=== PATIENT | female | born 1985 | race Caucasian/White ===

== ENCOUNTER 2017-08-19 21:49 | Emergency (ER) | payer BC ==
--- NOTE | 2017-08-19 23:08 | EDM.PDOC ---
ED HPI GENERAL MEDICAL PROBLEM - General Chief Complaint: Lower Extremity Injury/Pain Stated Complaint: RT FOOT HURTS Time Seen by Provider: 08/19/17 22:10 Source of Information: Reports: Patient - History of Present Illness INITIAL COMMENTS - FREE TEXT/NARRATIVE: three days ago she hit her right anterior leg below the knee against a trailer. Now she has pain.She was standing at work all day. she is worried about DVT and compartment syndrome Right Lower Leg Pain Score (Numeric/FACES): 7 - Related Data Allergies Allergy/AdvReac Type Severity Reaction Status Date / Time No Known Allergies Allergy Verified 08/19/17 21:58 Home Meds: Home Meds . [No Known Home Meds] 08/19/17 [History] Past Medical History HEENT History: Reports: None Cardiovascular History: Reports: None Musculoskeletal History: Reports: Other (See Below) Other Musculoskeletal History: right ribs fracture Psychiatric History: Reports: None Endocrine/Metabolic History: Denies: Diabetes, Type I, Diabetes, Type II - Infectious Disease History Infectious Disease History: Reports: Chicken Pox, Influenza - Past Surgical History HEENT Surgical History: Reports: None Cardiovascular Surgical History: Reports: None Respiratory Surgical History: Reports: Thoracotomy Musculoskeletal Surgical History: Reports: Other (See Below) Other Musculoskeletal Surgeries/Procedures:: clavicle surgery,right Social & Family History - Tobacco Use Smoking Status *Q: Current Every Day Smoker Years of Tobacco use: 15 Packs/Tins Daily: 1 Review of Systems - Review of Systems Review Of Systems: See Below Constitutional: Denies: Fever Respiratory: Denies: Shortness of Breath, Cough, Sputum Cardiovascular: Denies: Chest Pain ED EXAM, GENERAL - Physical Exam Exam: See Below Free Text/Narrative:: alert NAD RLE: diffuse bruising anterior leg ; diffuse swelling; some tightness of skin normal distal perfusion in foot; able to plantar and dorsiflex ankle without pain. normal mentation Course - Vital Signs Last Recorded V/S: Last Vital Signs Temp 97.8 F 08/19/17 21:59 Pulse 102 H 08/19/17 21:59 Resp 16 08/19/17 21:59 BP 128/73 08/19/17 21:59 Pulse Ox 98 08/19/17 21:59 - Orders/Labs/Meds Orders: Active Orders 24 hr Category Date Time Status Tibia Fibula Rt [CR] Stat Exams 08/19/17 22:21 Taken Venous Doppler Lwr Ext Rt [US] Stat Exams 08/19/17 22:21 Taken Meds: Medications Discontinued Medications Generic Name Dose Route Start Last Admin Trade Name Shashank PRN Reason Stop Dose Admin Oxycodone/Acetaminophen 1 tab 08/19/17 23:56 Percocet 325-10 Mg PO 08/19/17 23:57 ONETIME ONE Departure - Departure Time of Disposition: 23:59 Disposition: Home, Self-Care 01 Condition: Fair Clinical Impression: Contusion - Discharge Information Referrals: PCP,None [Primary Care Provider] - Forms: ED Department Discharge Additional Instructions: percocet is for short term use as it may be habit forming, sedating and constipating do not use tylenol with percocet keep right leg elevated off work until next friday. - My Orders Last 24 Hours: My Active Orders 08/19/17 22:21 Tibia Fibula Rt [CR] Stat Venous Doppler Lwr Ext Rt [US] Stat - Assessment/Plan Last 24 Hours: My Active Orders 08/19/17 22:21 Tibia Fibula Rt [CR] Stat Venous Doppler Lwr Ext Rt [US] Stat
[2017-08-19] MEDS ORDERED: Acetaminophen/oxyCODONE 325-10 MG Tab PO ONE (23:56)
--- NOTE | 2017-08-20 11:13 | US ---
EXAM DATE: 08/19/17 PATIENT'S AGE: 32 Patient: KANDACE FERGUSON Facility: [place], [place] Site . Site : 1985 Study: US Extremity Venous RT [id number]/19/2017 10:55:07 PM Ordering Physician: Naty White Final Report: INDICATION: Right lower leg pain and bruising. TECHNIQUE: Ultrasound venous duplex lower right extremity. Compression venous exam was performed using winkler-scale, color Doppler, and spectral Doppler imaging. COMPARISON: None. FINDINGS: Sonographic imaging demonstrates the right common femoral, deep femoral, superficial femoral, popliteal, posterior tibial and the contralateral left common femoral veins to be fully compressible with normal color Doppler blood flow. No subcutaneous fluid collection. IMPRESSION: No sign of deep venous thrombosis. Dictated by Christopher Mao MD @ 08/19/2017 11:01:01 PM Dictated by: Christopher Mao MD @ 08/19/2017 23:01:28 (Electronic Signature) Report Signed by Proxy. RICK
--- NOTE | 2017-08-20 11:14 | CR ---
EXAM DATE: 08/19/17 PATIENT'S AGE: 32 Patient: KANDACE FERGUSON Facility: [place], [place] Site . Site : 1985 Study: XRay Extremity tib/fib [id number]/[id number] 11:04:15 PM Ordering Physician: Naty White Final Report: Indication: Persistent pain and swelling after leg trauma 3 days ago Technique: Frontal and lateral views right tibia and fibula Comparison: None Findings: Bones: Alignment is normal. No fractures or bone lesions. Joint spaces: Unremarkable. Soft tissues: Mild soft tissue swelling of the lower extremity. Impression: Mild soft tissue swelling of the lower extremity. No acute fracture or subluxation. Dictated by Kenzie Cassidy MD @ Aug 19 2017 11:16PM (Electronic Signature) Report Signed by Proxy. RICK
== END 2017-08-20 00:10 | disposition home or self-care (01) ==
LOC: MW.ED 21:49
DX: S80.11XA Contusion of right lower leg, initial encounter (principal); F17.210 Nicotine dependence, cigarettes, uncomplicated; W22.8XXA Striking against or struck by other objects, initial encounter
CPT/HCPCS: 73590; 93971; 99284; A9270; 99283